=== PATIENT | female | born 1960 | race Caucasian/White ===

== ENCOUNTER 2023-05-19 08:48 | Emergency (ER) | payer MEDICARE, SELFPAY ==
--- NOTE | 2023-05-19 08:52 | XRR_ITS ---
PROCEDURE INFORMATION: Exam: XR Left Shoulder Exam date and time: 05/19/2023 9:05 AM Age: 62 years old Clinical indication: Pain; Shoulder; Left TECHNIQUE: Imaging protocol: Radiologic exam of the left shoulder. Views: 2 or more views. COMPARISON: No relevant prior studies available. FINDINGS: Bones/joints: Mild degenerative change. No evidence of fracture or dislocation Soft tissues: Normal. XR/XR shoulder LT min 2V* [id number] IMPRESSION: Mild degenerative change. No evidence of fracture or dislocation
[2023-05-19 09:01] VITALS: BP 164/76; PULSE 78; RESP 16; TEMP 36.5; O2SAT 99; BMI 26.6
[2023-05-19 09:13] VITALS: BP 157/75; PULSE 78; PULSE 79; RESP 16; O2SAT 98
[2023-05-19] MEDS: dexamethasone 10 mg/mL INJ IM (09:35)
--- NOTE | 2023-05-19 09:55 | ED_ITS ---
HPI - Extremity Problem General: Chief complaint: Extremity Injury, Upper Stated complaint: left shoulder pain Time Seen by Provider: 05/19/23 08:51 Source: patient Mode of arrival: ambulatory History of Present Illness: 62-year-old female presents emergency room planing of left shoulder pain that radiates down into her left little finger. Began hurting after she was throwing some luggage onto her van. It is exacerbated when she was using a tool to cut off the top of a barrel. Pain changes daily. At times she will have a difficult time grasping things with her left hand other times it will seem to resolve. She seen her primary care doctor and started on some anti- inflammatories with no significant relief. No previous known neck injuries. They had done a previous shoulder x-ray which was negative. Pain radiates from the neck through the shoulder to the left little finger Complaint: extremity pain Onset (ago): week(s) Pain Consistency: intermittent Location: left Quality: sharp Radiation: distal Relieving factors: nothing Exacerbating factors: nothing Associated symptoms: Deny fever(s) Review of Systems Const: Denies: fever(s) or chills Resp: Denies: dyspnea GI: Denies: abdominal pain : Denies: dysuria Musc: Reports: extremity pain; Denies: neck pain or back pain Skin/Breast: Denies: pruritus Neuro: Denies: headache(s) Physical Exam Const: GENERAL APPEARANCE: cooperative and comfortable ORIENTATION/CONSCIOUSNESS: Yes awake, Yes oriented to person, Yes oriented to place and Yes oriented to time HENMT: COMMON NORMALS: normocephalic, atraumatic and hearing grossly normal bilaterally HEAD & SCALP: normocephalic and atraumatic Neck/C-Spine: OTHER: No worsening of pain with range of motion in the neck Resp: COMMON NORMALS: normal respiratory effort, No retractions, No use of accessory muscles and clear to auscultation bilaterally AUSCULTATION: clear to auscultation bilaterally Cardio: COMMON NORMALS: regular rate, regular rhythm and No murmurs present (Cardio) RATE: regular rate RHYTHM: regular rhythm GI: COMMON NORMALS: Soft to palpation and No hepatosplenomegaly present AUSCULTATION: Yes normoactive bowel sounds PALPATION: Yes Soft to palpation, No Tenderness to palpation present (GI), No Guarding due to palpation present (GI) and Yes No hepatosplenomegaly present Extremity: COMMON NORMALS: normal to inspection, capillary refill normal, no clubbing, cyanosis or edema, no calf tenderness and no pedal edema OTHER: Negative impingement sign in the left shoulder. Some mild pain in the biceps tendon pain with resistance to extension. Decreased sensation in C8 nerve distribution director of learning strength equal bilaterally Neuro: SENSORIUM/ORIENTATION: Yes oriented to person, Yes oriented to place and Yes oriented to time Skin: COMMON NORMALS: no rashes or lesions noted GENERAL SKIN EXAM: no rashes or lesions noted Course Vital Signs: Vital signs: Vital Signs Temperature 97.7 F 05/19/23 09:01 Pulse Rate 78 05/19/23 09:13 Respiratory Rate 16 05/19/23 09:13 Blood Pressure 157/75 05/19/23 09:13 Pulse Oximetry 98 05/19/23 09:13 Oxygen Delivery Me thod Room Air 05/19/23 09:13 MDM - Extremity (Nontraumatic) Medical Decision Making Left shoulder x-ray normal. Suspect C8 nerve impingement. I will start on steroids given dexamethasone here discharged home with oral steroid taper diclofenac and muscle relaxer follow-up with her primary care doctor as scheduled in about a week and a half recommend that she keep that if symptoms are persisting she may be a candidate for physical therapy or possibly advanced imaging depending on the exam at the time. Lab Data Radiology Impressions Shoulder X-Ray 05/19/23 08:52 IMPRESSION: Mild degenerative change. No evidence of fracture or dislocation All radiology interpretation(s) finalized by discharge Discharge Plan Discharge Patient Disposition: Home Clinical Impression: Cervical radiculopathy Condition: Stable Prescriptions: New tizanidine 4 mg tablet 4 mg PO Q6H PRN (Reason: muscle spasticity) Qty: 20 0RF Rx Instructions: do not exceed 3 doses per 24 hrs prednisone 20 mg tablet 20 mg PO TID Qty: 15 0RF Rx Instructions: 1 p.o. 3 times daily x3 days, 1 p.o. twice daily x2 days, 1 p.o. daily x2 days diclofenac sodium 75 mg tablet,delayed release (DR/EC) 75 mg PO Q12H PRN (Reason: pain) Qty: 20 0RF Discharge Orders: Discharge ED (Routine); Ordered 05/19/23 Ordered By: Chris Tillman Referrals: Sol Brown MD [Primary Care Provider] - Discharge Diet: Usual diet Discharge Activity: Limit activity as instructed Patient Instructions: Opioid Safety, Pain Management Activity Restrictions/Additional Instructions: You are seen today for shoulder and arm pain. I suspect you may have 8th cervical nerve impingement that is causing this. You are given steroids here in the emergency room start the oral steroid taper tomorrow. He also given muscle relaxer and anti-inflammatory to use as needed. Strongly encourage you to follow-up with your primary care doctor to reevaluate. If symptoms persist you may need advanced imaging done as an outpatient. Coding Level of Care Code ED Cleaning Manager for Nathalie Lim
[2023-05-19 10:11] VITALS: BP 137/67; PULSE 76; RESP 16; O2SAT 98
== END 2023-05-19 10:11 | disposition home or self-care (01) ==
PROVIDERS: Emergency Provider Family Medicine; PCP Family Medicine
DX: M54.12 Radiculopathy, cervical region (principal)
CPT/HCPCS: 73030; 96372; 99284; J1100

== ENCOUNTER 2023-05-20 17:07 | Emergency (ER) | payer MEDICARE, SELFPAY ==
--- NOTE | 2023-05-20 17:08 | XRR_ITS ---
PROCEDURE INFORMATION: Exam: XR Right Shoulder Exam date and time: 05/20/2023 5:20 PM Age: 62 years old Clinical indication: Pain; Shoulder; Right; Additional info: Injury TECHNIQUE: Imaging protocol: Radiologic exam of the right shoulder. Views: 2 or more views. COMPARISON: No relevant prior studies available. FINDINGS: Bones/joints: No fracture or other acute abnormality. Minor degenerative changes are seen in the AC joint. Soft tissues: Normal. XR/XR shoulder RT min 2V* [id number] IMPRESSION: Nonacute findings.
[2023-05-20 17:09] VITALS: BP 145/70; PULSE 73; RESP 17; O2SAT 99; BMI 26.6
--- NOTE | 2023-05-20 17:37 | ED_ITS ---
HPI - Extremity Problem General: Chief complaint: Extremity Problem,Nontraumatic Stated complaint: right shoulder pain Time Seen by Provider: 05/20/23 17:09 Source: patient Mode of arrival: ambulatory Limitations: no limitations History of Present Illness: Patient is a nice 62-year-old female presents to ED today with complaint of right shoulder pain. Patient states she was here yesterday for left shoulder pain and diagnosed with a cervical radiculopathy. Patient states she has chronically had pain in her neck and shoulders for years. She states she received a steroid shot in the left arm yesterday and states her left shoulder today feels much improved and is now requesting a steroid shot in her right arm to help with her right shoulder pain. MD Complaint: joint pain Pain Consistency: intermittent Location: right and upper extremity Radiation: none Exacerbating factors: range of motion Associated symptoms: Reports no associated symptoms; Deny chest pain Review of Systems Card: Denies: chest pain Resp: Denies: dyspnea Musc: Reports: neck pain and joint pain (R shoulder); Denies: back pain, extremity pain, extremity swelling, joint swelling, joint redness, joint warmth, limited range of motion, muscle cramps, muscle weakness or decrease in muscle mass Neuro: Denies: headache(s), numbness in extremities, weakness in extremities or sensory changes Physical Exam Const: COMMON NORMALS: no acute distress, average body habitus, patient oriented x3, no limitations, healthy appearing, alert and well nourished GENERAL APPEARANCE: cooperative Neck/C-Spine: COMMON NORMALS: full ROM, no lymphadenopathy, no meningeal signs, no JVD and No carotid bruits GENERAL: Yes normal visual inspection CERVICAL SPINE: No Cervical spine tenderness, No step off deformity and Yes Paracervical muscle tenderness Chest: COMMONS NORMALS: normal inspection of the chest and normal palpation of entire chest wall Resp: COMMON NORMALS: normal respiratory effort and clear to auscultation bilaterally AUSCULTATION: clear to auscultation bilaterally Cardio: COMMON NORMALS: no JVD, regular rate and regular rhythm RATE: regular rate RHYTHM: regular rhythm Extremity: COMMON NORMALS: normal to inspection, full ROM, capillary refill normal, no joint enlargement, no clubbing, cyanosis or edema, no calf tenderness and no pedal edema GENERAL: Yes normal exam except as noted RIGHT UPPER EXTREMITY: Yes shoulder joint (mild pain overlying posterior shoulder/trapezius/cervical paraspinals) Right shoulder: Yes Right shoulder joint ROM exam (normal) and Yes Right shoulder joint neurovascular exam (normal) Neuro: COMMON NORMALS: patient oriented x3, moves all extremities, no focal motor deficits and no sensory deficits noted SENSORIUM/ORIENTATION: Yes alert MENINGEAL SIGNS: Yes no meningeal signs Course Vital Signs: Vital signs: Vital Signs Pulse Rate 73 05/20/23 17:09 Respiratory Rate 17 05/20/23 17:09 Blood Pressure 145/70 05/20/23 17:09 Pulse Oximetry 99 05/20/23 17:09 Oxygen Delivery Me thod Room Air 05/20/23 17:09 MDM - Extremity (Nontraumatic) Medical Decision Making Patient was under the impression that she got an intra-articular injection of the left shoulder yesterday. She is reporting her left shoulder from yesterday significantly better and was now requesting same intra-articular injection in the right shoulder. I explained to her that patient received 10 mg of dexamethasone IM in the left arm and half-life of this medication is 36-48 hours thus we do not really need to repeat any intramuscular steroids today. She was prescribed anti-inflammatories and oral steroids upon discharge yesterday. Patient has follow up with PCP soon. Lab Data Radiology Impressions Shoulder X-Ray 05/20/23 17:08 IMPRESSION: Nonacute findings. All radiology interpretation(s) finalized by discharge Discharge Plan Discharge Patient Disposition: Home Clinical Impression: Cervical radiculopathy Condition: Stable Prescriptions: No Action tizanidine 4 mg tablet 4 mg PO Q6H PRN (Reason: muscle spasticity) Qty: 20 0RF Rx Instructions: do not exceed 3 doses per 24 hrs prednisone 20 mg tablet 20 mg PO TID Qty: 15 0RF Rx Instructions: 1 p.o. 3 times daily x3 days, 1 p.o. twice daily x2 days, 1 p.o. daily x2 days diclofenac sodium 75 mg tablet,delayed release (DR/EC) 75 mg PO Q12H PRN (Reason: pain) Qty: 20 0RF Discharge Orders: Discharge ED (Routine); Ordered 05/20/23 Ordered By: Sania Queen Referrals: Sol Brown MD [Primary Care Provider] - Coding Level of Care Code ED Odd Piece Checker for Nathalie Lim
== END 2023-05-20 17:44 | disposition home or self-care (01) ==
PROVIDERS: Emergency Provider Physician Assistant; PCP Family Medicine
DX: M54.12 Radiculopathy, cervical region (principal)
CPT/HCPCS: 73030; 99283

== ENCOUNTER 2023-05-31 09:55 | Inpatient (IN) | payer MEDICARE, SELFPAY ==
[2023-05-31 09:55] VITALS: BP 172/64; PULSE 85; RESP 18; TEMP 36.6; O2SAT 98; BMI 25.1
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
--- NOTE | 2023-05-31 10:48 | DCPLANNER ---
Sent referral to ortho clinic on 05/31/23 at 1048 am. Ortho clinic to contact patient.
--- NOTE | 2023-05-31 11:31 | PC.PHAR ---
pt and pts verified pts medications-pt and pts states the pt is not taking lexapro 20mg daily ext shows last filled 03/04/23 30d/s and crestor 10mg daily rx filled 02/20/23 90d/s-pt states she was taking naproxen 500mg qid prn pain rx filled 05/27/23 21d/s 500mg bid-rx filled for flexeril 10mg tid prn ms on 05/29/23 10d/s pt states she takes 10mg hs
[2023-05-31] MEDS: LORazepam 2 mg Tablet PO (11:37)
--- NOTE | 2023-05-31 11:58 | CT_ITS ---
WS: [id number] CT HEAD TECHNIQUE: Noncontrast CT of the head obtained from the skullbase to the vertex. CLINICAL INFORMATION: altered mental status COMPARISON: None. DLP: 1079.[address] scans at [facility] use at least one of these dose optimization techniques: automated e xposure control; mA and/or kV adjustment per patient size (includes targeted exams where dose is matc hed to clinical indication); or iterative reconstruction. FINDINGS: No evidence of intracranial hemorrhage or mass effect. Ventricular system and basal cisterns are rosado nt. Mild small vessel changes with moderate parenchymal volume loss. No extra-axial fluid collections . No evidence of mass or mass effect. Mild intracranial vascular calcification.. Paranasal sinuses and mastoid air cells are well aerated. Normal visualized soft tissues. IMPRESSION: 1. No evidence of intracranial hemorrhage or mass effect. 2. Mild small vessel changes. Moderate parenchymal volume loss. 3. Small vessel changes in the bethle. 4. No acute intracranial findings.
[2023-05-31] MEDS: sodium chloride 0.9% 500 ML 999 ML IV (12:15)
--- NOTE | 2023-05-31 12:27 | ECG_ITS ---
[facility] Test Date: 2023-05-31 Pat Name: Dalton Jaqeuz Department: Room: Gender: Female Regional Ehs Manager: : 1960 Requested By: Arpit Casarez Order Number: [id number] Pili MD: Dom Frazier M.D. Measurements Intervals [place] Rate: 69 P: 65 ID: [id number] QRS: -21 QRSD: 79 T: -72 QT: 417 QTc: 449 Interpretive Statements SINUS RHYTHM BORDERLINE LEFT AXIS DEVIATION [QRS AXIS < -20] MODERATE VOLTAGE CRITERIA FOR LVH, CONSIDER NORMAL VARIANT [MEETS CRITERIA IN ONE OF: R(aVL), S(V1), R(V5), R(V5/V6)+S(V1)] MODERATE T-WAVE ABNORMALITY, CONSIDER ANTEROLATERAL ISCHEMIA [-0.1+ mV T-WAVE IN V3-V6] No previous ECG available for comparison Electronically Signed On 05-31-2023 13:42:32 CDT by Dom Frazier M.D. [email or web address]
[2023-05-31 12:47] LABS: Basophils % 0.3 %; Eosinophils # 0.1 10^3/uL (0.0-0.8); Eosinophils % 1.2 %; Hematocrit 43.7 % (36-47); Lymphocytes # 2.1 10^3/uL (0.8-4.8); Mean Corpuscular Hemoglobin 31.1 pg (27-33); Mean Corpuscular Volume 94.4 fl (85-98); Mean Platelet Volume 10.9 fL (7.4-10.4); Monocytes # 0.6 10^3/uL (0.2-0.9); Monocytes % 6.5 %; Neutrophils # 6.99 10^3/uL (1.8-7.7); Neutrophils % 70.7 %; Nucleated Red Blood Cells % 0 %; Platelet Count 210 10^3/cmm (157-399); Red Blood Count 4.63 10^6/uL (3.85-5.65); Red Cell Distribution Width 13.1 % (12.1-15.1); White Blood Count 9.88 10^3/uL (3.29-11.43)
[2023-05-31 13:10] LABS: Amphetamines Screen Urine Negative (Negative); Barbiturates Screen Urine Negative (Negative); Benzodiazepines Screen Urine Positive (Negative); Cocaine Screen Urine Negative (Negative); Opiate Screen Urine Negative (Negative); PCP Screen Urine Negative (Negative); THC Screen Urine Positive (Negative)
[2023-05-31 13:14] LABS: Add Urine Microscopic? YES; Bilirubin Urine Neg (Negative); Blood Urine Neg (Negative); Glucose Urine UA Norm (Normal); Ketones Urine 2+ (Negative); Leukocyte Esterase Urine Negative (Negative); Nitrate Urine Negative (Negative); Protein Urine Neg (Negative); Specific Gravity, Urine 1.015 (1.005-1.030); Sulfosalicylic Acid Urine Negative (Negative); Urine Appearance SL Hazy (CLEAR); Urine Color Yellow (Yellow); Urobilinogen Urine Norm (Negative); pH Urine 9 (5-7)
[2023-05-31 13:15] LABS: Add Urine Culture? No; Bacteria Urine 1+ /hpf; Mucus Urine 1+ /hpf; RBC Urine 0-4 /hpf (0-2); WBC Urine 0-4 /hpf (0-5)
[2023-05-31 13:17] LABS: Alanine Aminotransferase 68 U/L (0-33); Albumin Level 4.3 g/dL (3.5-5.2); Alkaline Phosphatase 68 U/L (35-105); Anion Gap 13.7 (5-19); Aspartate Amino Transferase 54 U/L (0-32); Blood Urea Nitrogen 8 mg/dL (8-23); Calcium 9.2 mg/dL (8.5-10.5); Carbon Dioxide 28 mmol/L (22-29); Chloride 106 mmol/L (98-107); Globulin 2.2 g/dL (1.3-4.6); Glomerular Filtration Rate 162.3 mL/min (90-130); Glucose 110 mg/dL (65-115); Osmolality Calculated 297 mOsm/kg (285-295); Potassium 3.7 mmol/L (3.5-5.1); Sodium 144 mmol/L (136-145); Thyroid Stimulating Hormone 1.91 uIU/mL (0.27-4.20); Total Bilirubin 0.6 mg/dL (0.15-1.2); Total Protein 6.5 g/dL (6.6-8.7)
[2023-05-31 13:25] LABS: Acetaminophen < 5.0 ug/mL (10-30); Alcohol Level < 10 mg/dL (0-10); Salicylate < 0.3 mg/dL (3-10)
--- NOTE | 2023-05-31 14:44 | PC.NURSE ---
96 hr rights reviewed with patient with assistance of [facility] home security professional Mynor @0800. No questions or concerns verbalized by the patient at this time. Patient copy of rights left @bedside with patient.
[2023-05-31 17:27] VITALS: BP 126/56; PULSE 88; RESP 16; TEMP 36.6; O2SAT 98
[2023-05-31 20:18] LABS: Glucose Point of Care 160 mg/dL (70-110)
[2023-05-31 20:30] VITALS: BP 98/63; PULSE 78; RESP 16; TEMP 36.9; O2SAT 97
[2023-05-31] MEDS: neomycin-poly-bacitracin oint 28 gm 1 APPLIC TOPICAL (23:20)
[2023-05-31] MEDS: ibuprofen 600 mg Tablet PO (23:20)
[2023-06-01] MEDS: calcium carbonate 500 mg Chew Tablet PO (01:16)
[2023-06-01 06:00] VITALS: BP 108/69; PULSE 77; RESP 16; O2SAT 98
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
--- NOTE | 2023-06-01 08:08 | PHA.FALL ---
A Pharmacy Consult Was Conducted For Dalton Jaquez Due To: Sellers Fall Scale Risk Level: High Fall Risk On 06/01/23 07:57 And A Medication Fall Risk Score Greater Than 10. The Recommendations Are As Follows: Multiple High risk PRN medications that should be limited as appropriate High risk: haloperidol - Orthostatic hypotension, slow reflexes, loss of balance lorazepam - Drowsiness, slows reactions, impaired balance olanzapine - Orthostatic hypotension, slow reflexes, loss of balance trazodone - Orthostatic hypotension, drowsiness, slow reactions. DOUBLE THE RATE OF FALLS
[2023-06-01] MEDS: flu vacc pf 2023-24 (6 mos+) 60 MCG IM (09:41)
[2023-06-01] MEDS: pantoprazole DR 40 mg Tablet PO ×2 (09:42→20:12)
[2023-06-01] MEDS: trolamine salicylate 10% 141 gm Cream 1 APPLIC TOPICAL (12:03)
[2023-06-01 13:09] VITALS: BP 108/70; PULSE 83; RESP 12; TEMP 37.1; O2SAT 96
[2023-06-01 20:05] VITALS: BP 148/85; PULSE 98; RESP 18; TEMP 36.9; O2SAT 97
[2023-06-01] MEDS: ibuprofen 600 mg Tablet PO (20:12)
[2023-06-01] MEDS: trazodone 50 mg Tablet PO (22:12)
[2023-06-02] MEDS: ibuprofen 600 mg Tablet PO ×2 (04:48→09:38)
[2023-06-02 06:00] VITALS: BP 170/98; PULSE 95; RESP 18; TEMP 36.6; O2SAT 98
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
[2023-06-02] MEDS: pantoprazole DR 40 mg Tablet PO ×2 (09:36→20:45)
[2023-06-02 12:24] VITALS: BP 117/72; PULSE 91; RESP 18; TEMP 37.1; O2SAT 98
--- NOTE | 2023-06-02 14:59 | PC.NURSE ---
contact info Javier Jaquez [phone]
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
[2023-06-02 19:23] VITALS: BP 119/76; PULSE 83; RESP 16; TEMP 36.7; O2SAT 99
[2023-06-02] MEDS: quetiapine 100 mg Tablet 200 MG PO (20:45)
[2023-06-03] MEDS: acetaminophen 325 mg Tablet 650 MG PO (00:10)
[2023-06-03] MEDS: trazodone 50 mg Tablet PO (00:10)
[2023-06-03 06:00] VITALS: BP 121/72; PULSE 81; RESP 13; TEMP 36.5; O2SAT 84
[2023-06-03] MEDS: pantoprazole DR 40 mg Tablet PO ×2 (09:12→20:00)
[2023-06-03 13:42] VITALS: BP 117/74; PULSE 102; RESP 18; TEMP 36.6; O2SAT 99
--- NOTE | 2023-06-03 15:22 | PC.NURSE ---
PT INFORMED THIS RN THAT SHE WAS MAKING A LIST OF REPAIRS THAT NEED TO BE FIXED IN THIS PLACE. PT WAS EDUCATED THAT ANY REPAIRS THAT NEED TO BE MADE THE FACILITY AND MAINTENANCE IS ALREADY AWARE OF. PT STATES I AM MAKING THE LIST ANYWAY AND IF THE REPAIRS ARE NOT DONE IN A TIMELY MANNER YOHANNES HAS A BIG MOUTH AND ALL THE NEWS PAPERS WILL KNOW. PT REQUESTED TO SPEAK TO THIS RN A FEW HOURS LATER AND PRESENTED A LIST OF REPAIRS SHE WOULD LIKE TO BE FIXED. THE LIST WAS PLACED IN PT PAPER CHART. PT WAS ONCE AGAIN EDUCATED THAT ANY REPAIRS THAT NEED TO BE MADE WILL BE FIXED BY OUT MAINTENANCE DEPARTMENT. PT THEN STATED WELL I'M WATCHING THEM SO IT BETTER BE DONE. PT WAS THANKED BUT REMAINS HYPER-FOCUSED ON HAVING THE UNIT REPAIRED. PT REDIRECTED VERBALLY. PT CURRENTLY VISITING WITH IN NO ACUTE DISTRESS.
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
[2023-06-03] MEDS: cyclobenzaprine 10 mg Tablet PO (20:00)
[2023-06-03] MEDS: quetiapine 300 mg Tablet PO (20:00)
[2023-06-03] MEDS: ibuprofen 600 mg Tablet PO (20:01)
[2023-06-03 20:26] VITALS: BP 131/82; PULSE 104; RESP 18; TEMP 36.6; O2SAT 98
[2023-06-04 06:00] VITALS: BP 100/62; PULSE 76; RESP 15; TEMP 36.9; O2SAT 97
--- NOTE | 2023-06-04 08:54 | PC.NURSE ---
PT IS IN BED DENIES SI/HI AND AVH AT THIS TIME. PT CONTINUES TO RAMBLE WHEN SPEAKING AND IS VERY DEMANDING. STATES I WILL NOT GET UP WITH THIS WALKER, I NEED MY WHEELCHAIR. PT WAS ENCOURAGED TO INCREASE MOBILITY AND USE WALKER THAT IS PROVIDED. PT STATES I WILL ONLY USE THE WHEELCHAIR. SUPPORT WAS VOICED. PT CONTINUES TO BE SOMATIC AND BELIEVES SHE REQUIRES MORE ASSISTANCE THAT SHE NEEDS.
[2023-06-04] MEDS: ibuprofen 600 mg Tablet PO ×2 (09:14→20:18)
[2023-06-04] MEDS: pantoprazole DR 40 mg Tablet PO ×2 (09:15→20:18)
[2023-06-04] MEDS: cyclobenzaprine 10 mg Tablet PO ×3 (09:15→20:17)
[2023-06-04 14:00] VITALS: BP 162/86; PULSE 106; RESP 20; TEMP 36.8; O2SAT 98
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
[2023-06-04] MEDS: quetiapine 300 mg Tablet PO (20:18)
[2023-06-04 20:26] VITALS: BP 171/93; PULSE 123; RESP 20; TEMP 37.4; O2SAT 97
[2023-06-05] MEDS: ibuprofen 600 mg Tablet PO (02:56)
[2023-06-05 06:00] VITALS: BP 100/60; PULSE 93; RESP 18; TEMP 36.3; O2SAT 97
[2023-06-05] MEDS: pantoprazole DR 40 mg Tablet PO ×2 (08:02→20:41)
[2023-06-05] MEDS: cyclobenzaprine 10 mg Tablet PO ×3 (08:02→20:42)
--- NOTE | 2023-06-05 08:21 | PC.NURSE ---
Patient becoming very agitated and stated, she acts like she gives a shit about everybody, but she doesn't give a shit about anyone. Jesse. This RN then asked who she was talking about and she replied, nobody, but then elaborated that she was talking about another employee. This RN was then made aware that the patient urinated in a cup yesterday because she did not want to move to the bedside commode. When the other employee told her that it was not appropriate she apparently became angry and is now refusing care from her.
[2023-06-05 14:00] VITALS: BP 138/73; PULSE 99; RESP 16; TEMP 36.7; O2SAT 96
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
[2023-06-05 20:02] VITALS: RESP 16
[2023-06-05] MEDS: quetiapine 25 mg Tablet 50 MG PO (20:41)
[2023-06-05] MEDS: quetiapine 300 mg Tablet PO (20:41)
[2023-06-06] MEDS: ibuprofen 600 mg Tablet PO ×3 (01:51→15:36)
[2023-06-06] MEDS: trolamine salicylate 10% 141 gm Cream 1 APPLIC TOPICAL (01:51)
[2023-06-06 06:00] VITALS: RESP 16
[2023-06-06] MEDS: pantoprazole DR 40 mg Tablet PO ×2 (08:41→20:36)
[2023-06-06] MEDS: cyclobenzaprine 10 mg Tablet PO ×3 (08:41→20:36)
[2023-06-06] MEDS: neomycin-poly-bacitracin oint 28 gm 1 APPLIC TOPICAL (10:23)
[2023-06-06 14:00] VITALS: BP 131/83; PULSE 97; RESP 17; TEMP 36.5; O2SAT 98
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
[2023-06-06] MEDS: quetiapine 300 mg Tablet PO (20:35)
[2023-06-06] MEDS: quetiapine 25 mg Tablet 50 MG PO (20:35)
[2023-06-06 22:00] VITALS: BP 105/66; PULSE 91; RESP 18; TEMP 36.9; O2SAT 99
[2023-06-07] MEDS: ibuprofen 600 mg Tablet PO ×3 (02:07→21:21)
[2023-06-07 06:00] VITALS: BP 123/77; PULSE 88; RESP 16; TEMP 36.7; O2SAT 95
--- NOTE | 2023-06-07 09:19 | PC.NURSE ---
During morning assessment, patient denies all. patient states that she is back to normal already , despite still using a wheelchair and walker to get around. When this was pointed out, patient stated that she will have help from her son and when she returns home.
[2023-06-07] MEDS: cyclobenzaprine 10 mg Tablet PO ×3 (09:36→21:21)
[2023-06-07] MEDS: pantoprazole DR 40 mg Tablet PO ×2 (09:36→21:21)
[2023-06-07] MEDS: neomycin-poly-bacitracin oint 28 gm 1 APPLIC TOPICAL (09:40)
[2023-06-07] MEDS: trolamine salicylate 10% 141 gm Cream 1 APPLIC TOPICAL (11:35)
[2023-06-07 14:00] VITALS: BP 118/73; PULSE 89; RESP 15; TEMP 36.6; O2SAT 98
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
[2023-06-07 19:48] VITALS: BP 110/69; PULSE 94; RESP 18; TEMP 37.1; O2SAT 97
[2023-06-07] MEDS: quetiapine 25 mg Tablet 50 MG PO (21:21)
[2023-06-07] MEDS: quetiapine 300 mg Tablet PO (21:21)
[2023-06-08] MEDS: cetylpyridinium Lozenge 1 EACH MUCOUS MEM ×2 (05:42→17:12)
[2023-06-08 06:00] VITALS: BP 88/60; PULSE 96; RESP 16; TEMP 36.3; O2SAT 95
[2023-06-08] MEDS: cyclobenzaprine 10 mg Tablet PO ×3 (08:10→20:13)
[2023-06-08] MEDS: pantoprazole DR 40 mg Tablet PO ×2 (08:10→20:13)
--- NOTE | 2023-06-08 08:18 | PC.NURSE ---
PT CURRENTLY DENIES SI/HI/AH/VH. PT WAS COOPERATIVE WITH MEDICATIONS AND ASSESSMENT. PT CONTINUES TO ENDORSE NEED FOR WHEELCHAIR AND UNWILLINGNESS TO ATTEMPT MOBILITY. PT UNWILLING TO RAISE ARM ALL THE WAY TO [place]AN [place] FOR MEDICATIONS SCAN AND WOULD ONLY RAISE A PART OF THE WAY. PT CURRENT NEEDS ARE MET AT THIS TIME.
[2023-06-08 13:34] VITALS: BP 110/63; PULSE 103; RESP 12; TEMP 37; O2SAT 90
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
--- NOTE | 2023-06-08 18:09 | PC.NURSE ---
AT 1800 THIS RN HEARD A CRASHING SOUND AND WENT INTO PT ROOM TO INVESTIGATE. ZBIGNIEW ANTONIO WAS IN HER ROOM AND THE PT WAS IN THE FLOOR NEXT TO HER BED WITH HER BACK TO THE WALL TO HER WALKER. THIS NURSE TOLD CHERYLE OLMOS TO OBTAIN A SET OF VITAL SIGNS, VITALS WERE WNL. PT WAS ASKED IF SHE HIT HER HEAD AND PT STATED NO. WHEN ASKED WHAT HAPPENED PT STATED I WAS TRYING TO GET TO THE BED AND I FELL. PT STATED THAT THE ONLY PLACE THAT HURT WAS THE LEG THAT SHE HAD HURT PRIOR TO COMING TO THE HOSPITAL WHICH IS HER L LEG. THE LEFT LOWER EXTREMITY DOES HAVE SOME NON-PITTING EDEMA. THIS NURSE AND CHERYLE OLMOS WHILE USING A GATE BELT AND WITH PT ASSISTANCE LIFTED THE PT FROM THE GROUND AND TRANSFERRED HER TO THE BED. PHYSICIAN NOTIFIED AND ORDERED A MEDICAL CONSULT ON PT. [employer]TER NOTIFIED AND WARM IN WORKER NOTIFIED. ZBIGNIEW THOMAS STATED SO SHE WAS GETTING OUT OF HER WHEELCHAIR, HER WALKER WAS IN FRONT OF HER, SHE WAS NOT USING IT. SHE SHIFTED HER BODY TOWARDS ME TO GET INTO HER BED AND THEN SHE SAT ON THE GROUND. THERE WAS NO INDICATION SHE WAS ABOUT TO FALL, NO SHAKING OR ANYTHING, SHE JUST SAT DOWN.
[2023-06-08 18:16] VITALS: BP 100/63; PULSE 102; RESP 18; TEMP 36.7; O2SAT 97
[2023-06-08 19:20] VITALS: RESP 16
[2023-06-08] MEDS: quetiapine 100 mg Tablet 400 MG PO (20:13)
--- NOTE | 2023-06-08 20:56 | PC.NURSE ---
IN BED RESTING. AROUSES TO VOICE. PT DENIES SI/HI AND AVH AT THIS TIME. DENIES PAIN. PT HAS SITTER AT BEDSIDE TO MONITOR FOR SAFETY. PT CONTINUES TO BELIEVE SHE CAN NOT STAND AND NEEDS ASSISTANCE WITH ALL HER ADL'S. PT IS ENCOURAGED TO COMPLETE ADL'S AND GET OUT OF BED AND TO THE BATHROOM USING HER WALKER BUT WILL DECLINE THE WALKER. PT CONTINUES TO HAVE SOMATIC COMPLAINTS. SUPPORT VOICED.
--- NOTE | 2023-06-08 21:55 | PC.NURSE ---
DR. PITTMAN HERE TO SEE PT, HE WILL PLACE NEW ORDERS FOR XRAYS OF LEGS AND SHOULDERS DUE TO PT COMPLAINING OF PAIN AND HAS MILD SWELLING TO HER LEFT LOWER LEG. PT MEDICATED WITH TYLENOL AND IBUPROFEN NEEDED. PT CURRENTLY RESTING IN BED. SUPPORT VOICED.
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
--- NOTE | 2023-06-08 22:48 | PC.NURSE ---
STAFF EDUCATED PT IS ON BED REST UNTIL RESULTS OF X-RAYS AND ULTRASOUND OF LEFT LEG. LEFT LEG REMAINS ELEVATED FOR COMFORT AND TO DECREASE EDEMA. PT EDUCATED NOT TO GET OUT OF BED UNTIL RESULTS ARE IN AND REVIEWED BY DR. FERRERA. VERBALIZED UNDERSTANDING.
[2023-06-09] MEDS: ibuprofen 600 mg Tablet PO ×3 (01:32→22:00)
--- NOTE | 2023-06-09 01:39 | PC.NURSE ---
LEG IMMOBILIZER APPLIED TO LEFT LEG AT 0100 ORDERED. PT C/O OF 03/21 PAIN, PT WAS GIVEN IBUPROFEN 600 MG ORDERED FOR PAIN.
--- NOTE | 2023-06-09 05:15 | PC.NURSE ---
PEDAL PULSES CHECKED TO ENSURE PT WAS GETTING GOOD CIRCULATION AFTER APPLYING THE LEG IMMOBILIZER. PEDAL PULES ARE PALPABLE, SKIN WARM, ABLE TO WIGGLE TOES WITHOUT DIFFICULTY.
[2023-06-09 06:00] VITALS: BP 111/69; PULSE 78; RESP 14; TEMP 36.4; O2SAT 96
--- NOTE | 2023-06-09 06:00 | USR_ITS ---
PROCEDURE INFORMATION: Exam: US Duplex Left Lower Extremity Veins, Limited Exam date and time: 06/09/2023 8:12 AM Age: 62 years old Clinical indication: Pain; Leg, lower; Left; Additional info: Swelling, pain, assess for dvt TECHNIQUE: Imaging protocol: Real-time duplex ultrasound of the left extremity with 2-D stephen scale, color Doppler flow and spectral waveform analysis including responses to compression and other maneuvers (when performed) with image documentation. Limited exam focused on the left lower extremity veins. COMPARISON: CR (LOW EXM, ) 06/08/2023 10:18 PM FINDINGS: Left deep veins: Unremarkable. The common femoral, femoral, proximal profunda femoral and popliteal veins are patent without thrombus. Normal Doppler waveforms. Normal compressibility and/or augmentation response. Superficial veins: Unremarkable. Saphenofemoral junction is patent without thrombus. Soft tissues: Unremarkable. US/[place] [id number] IMPRESSION: No evidence of deep vein thrombosis.
[2023-06-09] MEDS: acetaminophen 325 mg Tablet 650 MG PO ×2 (08:53→20:14)
[2023-06-09] MEDS: cyclobenzaprine 10 mg Tablet PO ×3 (08:54→20:06)
[2023-06-09] MEDS: pantoprazole DR 40 mg Tablet PO ×2 (08:54→20:06)
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
--- NOTE | 2023-06-09 13:41 | PC.NURSE ---
Patient with c/o bilateral shoulder pain rated 4/10. IBU 600 mg po given for this. Patient currently in WC with LLE elevated and iced.
[2023-06-09 14:00] VITALS: BP 113/65; PULSE 94; RESP 16; TEMP 36.5; O2SAT 98
--- NOTE | 2023-06-09 14:00 | PM.MISC ---
Miscellaneous Note Purpose of Documentation: Hospitalist follow-up. Note: Will defer to orthopedics for knee and shoulder diagnoses; as well as, pain control. When/if patient requires surgery will follow with orthopedics.
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
--- NOTE | 2023-06-09 18:22 | PC.NURSE ---
Patient has been calm and cooperative with care. Patient denies SI/HI/AVH, depression and anxiety. Variance in care plan with pain in LLE and bilateral shoulders. PRN analgesics given with relief voiced. Patient has had leg elevated, immobilized this shift. Neuro checks to LLE wnl. Patient educated on NPO status after midnight. Patient requires 2 assist for transfers and bathroom privileges. Sitter at bedside.
--- NOTE | 2023-06-09 20:13 | PC.NURSE ---
IN DAY ROOM WATCHING TV WITH SITTER AT SIDE FOR SAFETY AND ASSIST WITH ADLS. PT EDUCATED THAT SHE WILL BE NOTHING BY MOUTH AFTER MIDNIGHT. PT STATES I'M SO HAPPY I'M NOT CRAZY AND THEY KNOW WHATS WRONG WITH ME. I WILL BE GLAD TO GET THIS DONE AND GET BETTER. RATES LEG PAIN 7/10, WILL ADMINISTER TYLENOL WHEN PATIENT IS DONE GOING TO THE BATHROOM. PT DENIES SI/HI AND AVH AT THIS TIME. RATES DEPRSSION 0/10 ANXIETY 0/10. PT STATES I HAVE TOO MUCH TO DO TO BE DEPRESSED. PT EDUCATED ON ELEVATING LEG AND ICING LEFT LEG ONCE SHE IS IN BED. PTS LEG BRACE TO LEFT LOWER EXTREMITY IS IN PLACE. NEURO VASCULAR CHECKS COMPLETED AND PEDAL PULSES ARE PALPABLE, CAP REFIL LESS THAN THREE AND PT IS ABLE TO WIGGLE TOES. ALL QUESTIONS WERE ANSWERED AND SUPPORT WAS VOICED.
[2023-06-09] MEDS: quetiapine 100 mg Tablet 400 MG PO (20:14)
[2023-06-09 20:58] VITALS: BP 124/71; PULSE 100; RESP 18; TEMP 36.8; O2SAT 99
[2023-06-10] VITALS (17 sets, daily range): BP systolic 106–158; BP diastolic 50–89; PULSE 76–104; RESP 9–25; TEMP 36.3–36.8; O2SAT 91–100
--- NOTE | 2023-06-10 | XR_ITS ---
WS: [id number] INTRAOPERATIVE TECHNIQUE: 3 Spot fluoroscopic images for intraoperative purposes. FLUOROSCOPY TIME: 49.1 seconds CLINICAL INFORMATION: JOSE PICS COMPARISON: None. FINDINGS: Intraoperative changes lateral plate and screw fixation LEFT proximal tibia. Hardware appears in good position. IMPRESSION: Images obtained for intraoperative purposes.:
--- NOTE | 2023-06-10 06:23 | PC.NURSE ---
PT HAS BEEN NPO SINCE MIDNIGHT ORDERED.
--- NOTE | 2023-06-10 11:29 | ANES.PREANE2 ---
Pre-Anesthetic Assessment Height/Weight: Height 1.75 m Weight 59.421 kg Temp Pulse Resp BP Pulse Ox O2 Del Method 97.3 F L 89 15 137/89 100 Room Air 06/10/23 10:54 06/10/23 10:54 06/10/23 10:54 06/10/23 10:54 06/10/23 10:54 06/10/23 10:54 Preop Diagnosis: Left tibial plateau fracture Operation Date: 06/10/23 14:40 Proposed Procedures p ORIF Tibial Plateau(Left) - Ramirez Vaughan, DO Familial anesthetic complications: none Was Beta Deepak taken within 24 hours: N/A Was Clonidine taken within 24 hours: N/A Last intake: Intake Last Liquid Date 06/10/23 Last Liquid Time 00:00 Last Solid Date 06/09/23 Last Solid Time 20:00 Social No alcohol and No tobacco Exam alert, oriented x 3, clear to auscultation bilaterally and regular rate & rhythm Airway Mallampati: Class II Dentition: other (bridge) GI Gastroesophageal Reflux Disease Neuropsych 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 tx - no further issues) Anesthetic Plan ASA status: 3 Anesthesia: General Risk of > 500 ml blood loss (7ml/kg in children): No Other Pertinent Information mild congestion denies productive cough or fevers or dyspnea Medications/Allergies Home Medications Medication Instructions Recorded Confirmed Last Taken Type Robert See Rx Instructions .Route .COMPLEX 05/31/23 05/31/23 Unknown History cyclobenzaprine 10 mg tablet 10 mg PO BEDTIME 05/31/23 05/31/23 Unknown History naproxen 500 mg tablet 500 mg PO QID PRN Pain 05/31/23 05/31/23 Unknown History pantoprazole 40 mg tablet,delayed 40 mg PO BID 05/31/23 05/31/23 Unknown History release Allergies Allergy/AdvReac Type Severity Reaction Status Date / Time codeine Allergy ADR-Nausea Verified 05/29/23 11:18 morphine Allergy ADR-Nausea Verified 05/29/23 11:18 Current Medications Generic Name Dose Route Start Last Admin Trade Name Freq PRN Reason Stop Dose Admin Acetaminophen 650 mg 05/31/23 16:08 06/09/23 20:14 Acetaminophen 325 Mg Tablet PO 650 mg Q4H PRN Administration MILD PAIN Benzocaine 1 each 06/06/23 04:04 06/08/23 17:12 Cetylpyridinium Lozenge MUCOUS MEM 1 each Q2H PRN Administration SORE THROAT Calcium Carbonate 500 mg 06/01/23 01:10 06/01/23 01:16 Calcium Carbonate 500 Mg Chew Tablet PO 500 mg Q4H PRN Administration INDIGESTION Cyclobenzaprine HCl 10 mg 06/03/23 21:00 06/10/23 09:30 Cyclobenzaprine 10 Mg Tablet PO Not Given TID SHERICE Ibuprofen 600 mg 05/31/23 17:27 06/09/23 22:00 Ibuprofen 600 Mg Tablet PO 600 mg Q6H PRN Administration MODERATE PAIN Neomycin/Polymyxin/Bacitracin 1 applic 05/31/23 23:14 06/07/23 09:40 Pgcoxcst-Bapv-Tvitabhvfi Oint 28 Gm TOPICAL 1 applic BID PRN Administration cuts Pantoprazole Sodium 40 mg 06/01/23 21:00 06/10/23 09:[address] 40 Mg Tablet PO Not Given 0900,2100 SHERICE Quetiapine Fumarate 400 mg 06/08/23 21:00 06/09/23 20:14 Quetiapine 100 Mg Tablet PO 400 mg BEDTIME SHERICE Administration Trazodone HCl 50 mg 05/31/23 16:08 06/03/23 00:10 Trazodone 50 Mg Tablet PO 50 mg BEDTIME PRN Administration SLEEP Trolamine Salicylate 1 applic 06/01/23 05:18 06/07/23 11:35 Trolamine Salicylate 10% 141 Gm Cream TOPICAL 1 applic BID PRN Administration PAIN PFSH Anesthesia Medical History Bilateral shoulder pain Data Anesthesia 05/31/23 12:45 05/31/23 12:45 Cardiac Studies: No Data to Display
[2023-06-10] MEDS: cyclobenzaprine 10 mg Tablet PO ×2 (12:26→20:31)
[2023-06-10] MEDS: sodium chloride 0.9% 1,000 ML 30 ML IV (12:29)
[2023-06-10] MEDS: ceFAZolin 2,000 MG in sodium chloride 0.9% (plus) 50 ML 100 MG IV ×2 (15:05→23:33)
--- NOTE | 2023-06-10 16:30 | P.OP_ITS ---
Operative Report Date of procedure: June 10, 2023 Pre-op diagnosis: Left tibial plateau fracture Post-op diagnosis: same Procedure done: Open reduction internal fixation of left tibial plateau fracture Surgeon: Ramirez Vaughan DO Business Analytics Director: Geovanni Chatman Business Analytics Director: The registered nurse surgical services, Geovanni Chatman, FADI was needed for his expertise with fracture care. He was important and necessary throughout the procedure to complete in a safe and timely manner. He assisted with patient positioning prepping and draping tissue retraction suctioning of the operative field protection of the critical structures and tissue closure Estimated blood loss (mL): 5 Procedure: Open reduction internal fixation of left tibial plateau fracture Patient was brought to the operative suite after undergoing anesthesia was placed in the supine position. The left leg was placed in a bump and hip roll was placed. All areas impingement were well-padded. Tourniquet was placed. Incision made on the lateral aspect of the leg. The fracture was exposed. Small bone window was made in order to facilitate tapping up the comminuted pieces of the lateral plateau. Once these pieces were tamped up then the plate was placed. A partially-threaded cancellous screw was placed initially in order to compress the fracture. Then 2 locking screws were placed next to this. Cancellous screw was removed and remove the locking screw was placed there. The distal screws were then placed. AP lateral fluoroscopy ensured that the fracture was in good position. Wounds were irrigated and closed in layered fashion with Vicryl and salvador. Sterile dressings were applied and patient was transferred to the PACU in stable condition.
[2023-06-10] MEDS: fentaNYL 50 mcg/mL INJ 2mL IVP (16:38)
--- NOTE | 2023-06-10 16:55 | ANE.PACU2 ---
Inpatient post-anesthesia follow up: Airway intact: Yes Vital signs: Temperature 98.2 F Pulse Rate 95 Respiratory Rate 16 Blood Pressure 116/67 Pulse Oximetry 94 Oxygen Delivery Me thod Room Air Oxygen Flow Rate Fraction of Inspir ed Oxygen Hydration adequate: Yes Nausea and vomiting: No Pain level: 1 Mental status: Baseline
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
[2023-06-10 19:25] LABS: Basophils % 0.4 %; Eosinophils % 0.8 %; Hematocrit 44.4 % (36-47); Lymphocytes # 0.6 10^3/uL (0.8-4.8); Lymphocytes % 11.9 %; Mean Corpuscular HGB Conc 32.7 g/dL (30-55); Mean Corpuscular Hemoglobin 30.7 pg (27-33); Mean Corpuscular Volume 94.1 fl (85-98); Mean Platelet Volume 11.6 fL (7.4-10.4); Monocytes # 0.1 10^3/uL (0.2-0.9); Monocytes % 2.3 %; Neutrophils # 4.36 10^3/uL (1.8-7.7); Neutrophils % 83.8 %; Nucleated Red Blood Cells % 0 %; Platelet Count 121 10^3/cmm (157-399); Red Blood Count 4.72 10^6/uL (3.85-5.65); Red Cell Distribution Width 13.2 % (12.1-15.1)
[2023-06-10] MEDS: HYDROcodone-acetaminophen 7.5-325 mg Tablet PO (20:30)
[2023-06-10] MEDS: pantoprazole DR 40 mg Tablet PO (20:31)
[2023-06-10] MEDS: quetiapine 100 mg Tablet 400 MG PO (20:31)
[2023-06-10 21:01] LABS: Alanine Aminotransferase 25 U/L (0-33); Albumin Level 3.8 g/dL (3.5-5.2); Alkaline Phosphatase 84 U/L (35-105); Anion Gap 12.9 (5-19); Aspartate Amino Transferase 21 U/L (0-32); Blood Urea Nitrogen 11 mg/dL (8-23); Calcium 9.4 mg/dL (8.5-10.5); Carbon Dioxide 26 mmol/L (22-29); Chloride 106 mmol/L (98-107); Creatinine Clr Calc Pharmacy 118.4235; Globulin 3.4 g/dL (1.3-4.6); Glomerular Filtration Rate 125.4 mL/min (90-130); Glucose 172 mg/dL (65-115); Osmolality Calculated 295 mOsm/kg (285-295); Potassium 3.9 mmol/L (3.5-5.1); Sodium 141 mmol/L (136-145); Total Bilirubin 0.4 mg/dL (0.15-1.2); Total Protein 7.2 g/dL (6.6-8.7)
[2023-06-10 23:53] LABS: Iron 27 ug/dL (37-145); Percent Saturation 11.8 % (20-50); Total Iron Binding Capacity 227 mcg/dl; Unsaturated Iron Binding 200 ug/dL (112-347)
[2023-06-11 00:02] LABS: Vitamin B12 745 pg/mL (232-1245)
[2023-06-11 04:15] VITALS: BP 116/67; PULSE 95; RESP 16; TEMP 36.8; O2SAT 94
[2023-06-11 06:38] LABS: Chol HDL Ratio 3.23 mg/dL (0.0-4.40); Cholesterol 181 mg/dL (0-200); HDL Cholesterol 56 mg/dL (60-100); LDL Cholesterol Calculated 105 mg/dL (50-129); Triglycerides 100 mg/dL (0-150); VLDL Cholestrol Calculation 20 mg/dL (0-30)
[2023-06-11 06:39] LABS: Alanine Aminotransferase 21 U/L (0-33); Albumin Level 3.7 g/dL (3.5-5.2); Alkaline Phosphatase 81 U/L (35-105); Anion Gap 12.7 (5-19); Aspartate Amino Transferase 17 U/L (0-32); Blood Urea Nitrogen 10 mg/dL (8-23); Calcium 9.6 mg/dL (8.5-10.5); Carbon Dioxide 26 mmol/L (22-29); Chloride 102 mmol/L (98-107); Glomerular Filtration Rate 162.3 mL/min (90-130); Glucose 133 mg/dL (65-115); Osmolality Calculated 285 mOsm/kg (285-295); Potassium 3.7 mmol/L (3.5-5.1); Sodium 137 mmol/L (136-145); Total Bilirubin 0.4 mg/dL (0.15-1.2); Total Protein 6.7 g/dL (6.6-8.7)
[2023-06-11 06:55] LABS: Folate Level 5.7 ng/mL (4.8-37.3)
[2023-06-11 07:19] LABS: Basophils % 0.2 %; Hematocrit 38.3 % (36-47); Lymphocytes # 0.9 10^3/uL (0.8-4.8); Lymphocytes % 15.9 %; Mean Corpuscular HGB Conc 33.2 g/dL (30-55); Mean Corpuscular Hemoglobin 30.8 pg (27-33); Monocytes # 0.4 10^3/uL (0.2-0.9); Monocytes % 7.2 %; Neutrophils # 4.14 10^3/uL (1.8-7.7); Neutrophils % 76.3 %; Nucleated Red Blood Cells % 0 %; Platelet Count 284 10^3/cmm (157-399); Red Blood Count 4.12 10^6/uL (3.85-5.65); Red Cell Distribution Width 12.7 % (12.1-15.1); White Blood Count 5.42 10^3/uL (3.29-11.43)
[2023-06-11 07:33] LABS: Estmated Average Glucose 131; Hemoglobin A1C 6.2 % (4.0-6.0)
--- NOTE | 2023-06-11 07:47 | PM.PN ---
Subjective Subjective: POD 1 Patient resting comfortably. Mild left knee pain. Denies shortness of breath, chest pain. Vitals/I&O/Wt Last Vital Signs Temp 98.2 F 06/11/23 04:15 Pulse 95 06/11/23 04:15 Resp 16 06/11/23 04:15 BP 116/67 06/11/23 04:15 Pulse Ox 94 06/11/23 04:15 O2 Del Method Room Air 06/10/23 21:10 06/10/23 06/11/23 06/11/23 22:59 06:59 14:59 Intake Total 1340 / 1340 290 / 1630 Output Total / Balance 1335 / 1335 290 / 1625 Physical Exam Narrative: Patient is alert and orient x3 has a good general appearance normal mood and affect. Wiggling her toes on the left lower extremity with good cap refill. Cam boot present. Dressings are clean and dry. Calves are supple no medial thigh tenderness. Incisional site clean and dry. Data 06/11/23 05:29 06/11/23 05:29 A&P Assessment and plan (1) Closed fracture of left tibial plateau: Physical therapy to evaluate and help with gait training nonweightbearing left lower extremity. Continue cam boot. Although the patient states that she has had a fracture there in the past. The amount of swelling and erythema over that area we can evaluate in the near future. Encouraged ice and elevation of the left lower extremity with toes above the nose. Encouraged incentive spirometer for pulmonary toilet. Okay for discharge home when cleared medically from neuropsych. Lovenox for DVT prophylaxis. (2) Fracture of distal end of fibula: Attestations Medical Necessity Statement*: Defer to neuropsych team Coding Level of Care Code Acute Code for [facility] Diagnoses Closed fracture of left tibial plateau S82.142A Fracture of distal end of fibula S82.839A
[2023-06-11 08:09] VITALS: BP 122/72; PULSE 73; RESP 17; TEMP 36.4; O2SAT 98
[2023-06-11] MEDS: pantoprazole DR 40 mg Tablet PO ×2 (08:12→20:42)
[2023-06-11] MEDS: cyclobenzaprine 10 mg Tablet PO ×3 (08:12→20:42)
[2023-06-11] MEDS: HYDROcodone-acetaminophen 7.5-325 mg Tablet PO (08:12)
[2023-06-11] MEDS: ceFAZolin 2,000 MG in sodium chloride 0.9% (plus) 50 ML 100 MG IV ×2 (08:13→14:51)
[2023-06-11] MEDS: enoxaparin 30 mg/0.3 mL Syringe SUBCUT ×2 (08:17→20:41)
[2023-06-11 10:54] VITALS: BP 124/76; PULSE 88; RESP 16; O2SAT 97
[2023-06-11] MEDS: predniSONE 20 mg Tablet 40 MG PO (10:58)
[2023-06-11] MEDS: cetylpyridinium Lozenge 1 EACH MUCOUS MEM (11:00)
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
[2023-06-11 16:21] VITALS: BP 138/89; PULSE 93; RESP 15; TEMP 36.4; O2SAT 94
[2023-06-11] MEDS: HYDROcodone-acetaminophen 7.5-325 mg Tablet 1 TAB PO (17:15)
[2023-06-11] MEDS: trolamine salicylate 10% 141 gm Cream 1 APPLIC TOPICAL (17:24)
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
[2023-06-11 19:45] VITALS: BP 145/64; PULSE 92; RESP 18; TEMP 37; O2SAT 98
[2023-06-11] MEDS: quetiapine 100 mg Tablet 400 MG PO (20:41)
[2023-06-12 00:10] VITALS: BP 116/68; PULSE 84; RESP 17; TEMP 37; O2SAT 94
[2023-06-12 05:14] VITALS: BP 121/75; PULSE 78; RESP 16; TEMP 37; O2SAT 97
[2023-06-12 06:27] LABS: Basophils % 0.3 %; Eosinophils % 0.3 %; Hematocrit 35.7 % (36-47); Lymphocytes # 1.9 10^3/uL (0.8-4.8); Lymphocytes % 31.8 %; Mean Corpuscular HGB Conc 32.5 g/dL (30-55); Mean Corpuscular Hemoglobin 30.6 pg (27-33); Mean Corpuscular Volume 94.2 fl (85-98); Mean Platelet Volume 10.5 fL (7.4-10.4); Monocytes # 0.5 10^3/uL (0.2-0.9); Neutrophils # 3.48 10^3/uL (1.8-7.7); Neutrophils % 58.4 %; Nucleated Red Blood Cells % 0 %; Platelet Count 266 10^3/cmm (157-399); Red Blood Count 3.79 10^6/uL (3.85-5.65); Red Cell Distribution Width 12.6 % (12.1-15.1); White Blood Count 5.97 10^3/uL (3.29-11.43)
--- NOTE | 2023-06-12 06:47 | PM.PN ---
Subjective Subjective: POD 1 Patient was mobilizing with physical therapy yesterday. Reports minimal leg pain. Vitals/I&O/Wt Last Vital Signs Temp 98.6 F 06/12/23 05:14 Pulse 78 06/12/23 05:14 Resp 16 06/12/23 05:14 BP 121/75 06/12/23 05:14 Pulse Ox 97 06/12/23 05:14 O2 Del Method Room Air 06/11/23 16:21 06/11/23 06/11/23 06/12/23 14:59 22:59 06:59 Intake Total 530 / 530 290 / 820 Balance 530 / 530 290 / 820 Physical Exam Narrative: Patient is alert and orient x3 has a good general appearance normal mood and affect.? Wiggling her toes on the left lower extremity with good cap refill.? Cam boot present.? Dressings are clean and dry.? Calves are supple no medial thigh tenderness.? Incisional site clean and dry. Data 06/12/23 05:56 06/11/23 05:29 A&P Assessment and plan (1) Fracture of distal end of fibula: Continue ice and elevate the left lower extremity. Progress with nonweightbearing left lower extremity with a walker. Hydrocodone sent to the pharmacy. Continue aspirin daily for DVT prophylaxis. See her back in the office in 1 week's time for wound check. Continue incentive spirometer at home. Cleared for discharge when cleared by neuropsych. (2) Closed fracture of left tibial plateau: Attestations Medical Necessity Statement*: Discharge home today Coding Level of Care Code Acute Code for [facility] Fwd Diagnoses Fracture of distal end of fibula S82.839A Closed fracture of left tibial plateau S82.142A
[2023-06-12 07:51] VITALS: BP 146/76; PULSE 86; RESP 14; TEMP 36.4; O2SAT 97
[2023-06-12] MEDS: cyclobenzaprine 10 mg Tablet PO (08:07)
[2023-06-12] MEDS: predniSONE 20 mg Tablet 40 MG PO (08:07)
[2023-06-12] MEDS: enoxaparin 30 mg/0.3 mL Syringe SUBCUT (08:07)
[2023-06-12] MEDS: pantoprazole DR 40 mg Tablet PO (08:07)
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
[2023-06-12 11:35] VITALS: BP 122/58; PULSE 91; RESP 16; TEMP 36.8; O2SAT 98
--- NOTE | 2023-06-12 13:40 | PC.SOCIAL ---
Pg 2 IMM Explained to pt Pg 2 IMM. No questions voiced. Provided pt a copy. Initialed, dated, & timed a copy & placed in chart.
[2023-06-12 14:48] VITALS: BP 122/58; PULSE 91; RESP 16; TEMP 36.8; O2SAT 98
--- NOTE | 2023-06-12 14:50 | PC.NURSE ---
Patient verbalized understanding of discharge instructions, home medications, and follow up appointments. Patient stated that all her belongings that were locked in NPU had been returned. All new prescriptions delivered to patient at bedside prior to discharge.
== END 2023-06-12 14:52 | disposition home or self-care (01) | DRG 876 ==
LOC: ER 15:29 → NP 16:42 → MEDSURG 06-10 10:37
PROVIDERS: Emergency Medicine; Orthopaedic Surgery; Student in an Organized Health Care Education/Training Program; Admitting Provider Psychiatry & Neurology Psychiatry; Emergency Provider Physician Assistant; PCP Family Medicine; Visit Provider Psychiatry & Neurology Psychiatry
PROC: 0QSH04Z Reposition Left Tibia with Internal Fixation Device, Open Approach (ICD-10-PCS; principal; 2023-06-10 14:30)
DX: F31.10 Bipolar disorder, current episode manic without psychotic features, unspecified (principal); S82.142A Displaced bicondylar fracture of left tibia, initial encounter for closed fracture; F22 Delusional disorders; F43.10 Post-traumatic stress disorder, unspecified; M54.12 Radiculopathy, cervical region; M25.512 Pain in left shoulder; M25.511 Pain in right shoulder; V48.0XXA Car driver injured in noncollision transport accident in nontraffic accident, initial encounter; E11.9 Type 2 diabetes mellitus without complications; M15.9 Polyosteoarthritis, unspecified
CPT/HCPCS: 36415; 36416; 70450; 73030; 73560; 73562; 73590; 73700; 76000; 80053; 80061; 80306; 80307; 81001; 82607; 82746; 82962; 83036; 83540; 83550; 84443; 85025; 90471; 90686; 93005; 93971; 96372; 97110; 97150; 97161; 97165; 97166; 97530; 97535; 99285; C1713; J0690; J1100; J1170; J1650; J2405; J2704; J3010; J7030; J7040; J7512

== ENCOUNTER → 2023-06-18 15:30 | Outpatient (BNVA) | payer MEDICARE, SELFPAY | PROVIDERS: PCP Family Medicine; Visit Provider Physician Assistant | DX: S82.252D Displaced comminuted fracture of shaft of left tibia, subsequent encounter for closed fracture with routine healing (principal); X58.XXXD Exposure to other specified factors, subsequent encounter | CPT/HCPCS: 73562; 99024 ==

== ENCOUNTER → 2023-06-25 13:48 | Outpatient (BNVA) | payer MEDICARE, SELFPAY | PROVIDERS: PCP Family Medicine; Visit Provider Physician Assistant | DX: S82.142D Displaced bicondylar fracture of left tibia, subsequent encounter for closed fracture with routine healing (principal); X58.XXXD Exposure to other specified factors, subsequent encounter | CPT/HCPCS: 73562; 99024 ==

== ENCOUNTER → 2023-07-23 09:04 | Outpatient (BNVA) | payer MEDICARE, SELFPAY | PROVIDERS: PCP Family Medicine; Visit Provider Physician Assistant | DX: S82.142D Displaced bicondylar fracture of left tibia, subsequent encounter for closed fracture with routine healing (principal); X58.XXXD Exposure to other specified factors, subsequent encounter; S82.832D Other fracture of upper and lower end of left fibula, subsequent encounter for closed fracture with routine healing | CPT/HCPCS: 73590; 99024 ==

== ENCOUNTER → 2023-08-13 15:19 | Outpatient (BNVA) | payer MEDICARE, SELFPAY | PROVIDERS: PCP Family Medicine; Visit Provider Physician Assistant | DX: S82.142D Displaced bicondylar fracture of left tibia, subsequent encounter for closed fracture with routine healing (principal); X58.XXXD Exposure to other specified factors, subsequent encounter | CPT/HCPCS: 73590; 99024 ==

== ENCOUNTER → 2023-08-15 10:58 | Outpatient (BNVA) | payer MEDICARE, SELFPAY | PROVIDERS: PCP Family Medicine; Visit Provider Physician Assistant | DX: M25.511 Pain in right shoulder; M25.512 Pain in left shoulder; S46.011A Strain of muscle(s) and tendon(s) of the rotator cuff of right shoulder, initial encounter; G89.29 Other chronic pain; V49.9XXA Car occupant (driver) (passenger) injured in unspecified traffic accident, initial encounter | CPT/HCPCS: 73030; 99213 ==

== ENCOUNTER → 2023-09-10 11:19 | Outpatient (BNVA) | payer MEDICARE, SELFPAY | PROVIDERS: PCP Family Medicine; Visit Provider Orthopaedic Surgery | DX: S82.832D Other fracture of upper and lower end of left fibula, subsequent encounter for closed fracture with routine healing; X58.XXXD Exposure to other specified factors, subsequent encounter | CPT/HCPCS: 73590; 99024 ==

== ENCOUNTER 2023-10-15 13:07 | Outpatient (CLI) | payer MEDICARE, SELFPAY ==
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
== END 2023-10-15 13:08 | disposition home or self-care (01) ==
LOC: RAD 13:07
PROVIDERS: PCP Family Medicine; Visit Provider Physician Assistant
DX: M75.121 Complete rotator cuff tear or rupture of right shoulder, not specified as traumatic (principal); M19.011 Primary osteoarthritis, right shoulder; M25.411 Effusion, right shoulder
CPT/HCPCS: 73221

== ENCOUNTER → 2023-11-12 13:08 | Outpatient (BNVA) | payer MEDICARE, SELFPAY | PROVIDERS: PCP Family Medicine; Visit Provider Orthopaedic Surgery | DX: S82.142D Displaced bicondylar fracture of left tibia, subsequent encounter for closed fracture with routine healing (principal); X58.XXXD Exposure to other specified factors, subsequent encounter | CPT/HCPCS: 73590; 99213 ==

== ENCOUNTER → 2023-12-24 10:11 | Outpatient (BNVA) | payer MEDICARE, SELFPAY | PROVIDERS: PCP Family Medicine; Visit Provider Student in an Organized Health Care Education/Training Program | DX: M75.102 Unspecified rotator cuff tear or rupture of left shoulder, not specified as traumatic (principal); M19.012 Primary osteoarthritis, left shoulder | CPT/HCPCS: 99213 ==

== ENCOUNTER → 2024-08-27 08:56 | Outpatient (BNVA) | payer MEDICARE, SELFPAY | PROVIDERS: PCP Family Medicine; Visit Provider Nurse Practitioner Psychiatric/Mental Health | DX: Z79.899 Other long term (current) drug therapy (principal) | CPT/HCPCS: 80053; 80061; 83036 ==

== ENCOUNTER → 2024-10-07 15:27 | Outpatient (BNVA) | payer MEDICARE, SELFPAY | PROVIDERS: PCP Family Medicine; Visit Provider Podiatrist Foot & Ankle Surgery | DX: M79.671 Pain in right foot (principal); M21.611 Bunion of right foot; L60.3 Nail dystrophy | CPT/HCPCS: 73630; 99203 ==

== ENCOUNTER 2024-10-21 15:16 | Outpatient (CLI) | payer MEDICARE, SELFPAY ==
--- NOTE | 2024-10-21 15:24 | XR_ITS ---
WS: [id number] Abdomen series, Flat and upright Clinical Data: CONSTIPATION Comparison: None. Findings: No free air is seen beneath the diaphragms. No abnormal intra- abdominal masses or calcifications are seen. There is a moderate amount of fecal material throughout the colon. XR/XR abdomen min 2V 49506 Impression: Moderate amount of fecal material in the colon.
== END 2024-10-21 15:17 | disposition home or self-care (01) ==
LOC: RAD 15:19
PROVIDERS: PCP Family Medicine; Visit Provider Family Medicine
DX: K59.00 Constipation, unspecified (principal)
CPT/HCPCS: 74019

== ENCOUNTER → 2024-11-23 13:10 | Outpatient (BNVA) | payer MEDICARE, SELFPAY | PROVIDERS: PCP Family Medicine; Visit Provider Student in an Organized Health Care Education/Training Program | DX: Z12.11 Encounter for screening for malignant neoplasm of colon (principal) | CPT/HCPCS: 99024; 99204 ==

== ENCOUNTER 2024-12-15 07:22 | Day surgery (SDC) | payer MEDICARE, SELFPAY ==
[2024-12-15 08:04] VITALS: BP 129/89; PULSE 113; RESP 18; TEMP 36.6; O2SAT 95
[2024-12-15] MEDS: sodium chloride 0.9% 1,000 ML 15 ML IV (08:09)
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
--- NOTE | 2024-12-15 08:55 | W.PM.OPSUD ---
Surgery/Procedure H&P Update DATE OF PROCEDURE: December 15, 2024 DATE H&P PERFORMED: 11/23/24 H&P UPDATE INFORMATION: I have reviewed H&P completed within last 30 days, I have examined patient prior to procedure and No changes to prior documentation PREOP DIAGNOSIS: screening PLANNED PROCEDURE: Operation Date: 12/15/24 09:00 Proposed Procedures p Colonoscopy 97300, G0121, Z12.11(Not Applicable) - Morales Woodall MD
[2024-12-15 09:21] VITALS: BP 104/62; PULSE 68; RESP 16; TEMP 36.4; O2SAT 100
[2024-12-15 09:45] VITALS: BP 118/73; PULSE 90; RESP 16; O2SAT 99
--- NOTE | 2024-12-15 09:51 | ANE.PACU2 ---
Inpatient post-anesthesia follow up: Airway intact: Yes Vital signs: Temperature 97.5 F Pulse Rate 90 Respiratory Rate 16 Blood Pressure 118/73 Pulse Oximetry 99 Oxygen Delivery Me thod Room Air Oxygen Flow Rate Fraction of Inspir ed Oxygen Hydration adequate: Yes Nausea and vomiting: No Pain level: 1 Mental status: Baseline
== END 2024-12-15 09:52 | disposition home or self-care (01) ==
PROVIDERS: PCP Family Medicine; Visit Provider Student in an Organized Health Care Education/Training Program
PROC: 0DJD8ZZ Inspection of Lower Intestinal Tract, Via Natural or Artificial Opening Endoscopic (ICD-10-PCS; CPT 45330; 2024-12-15 09:00)
DX: Z12.11 Encounter for screening for malignant neoplasm of colon (principal); Z53.8 Procedure and treatment not carried out for other reasons; K21.9 Gastro-esophageal reflux disease without esophagitis; E11.9 Type 2 diabetes mellitus without complications; Z79.899 Other long term (current) drug therapy; Z86.73 Personal history of transient ischemic attack (TIA), and cerebral infarction without residual deficits; Z87.891 Personal history of nicotine dependence
CPT/HCPCS: G0121; J2704; J7030